=== PATIENT | male | born 1955 | race African-American/Black ===

== ENCOUNTER 2018-03-06 10:30 | Emergency (ER) | payer SELFPAY ==
[~2018-03-06] VITALS: Ht 165.1 cm; Wt 73.0 kg
[2018-03-06 11:18] VITALS: BP 119/68
== END 2018-03-06 11:28 | disposition left against medical advice (07) ==
LOC: EDBD 10:30 → ER 10:44
DX: Z53.21 Procedure and treatment not carried out due to patient leaving prior to being seen by health care provider (principal)